=== PATIENT | male | born 1980 | race Two or more races ===

== ENCOUNTER 2016-12-29 21:50 | Emergency (ER) | payer SELFPAY ==
[~2016-12-29] VITALS: Ht 170.2 cm; Wt 9.1 kg
[2016-12-29 22:56] VITALS: BP 135/86
[2016-12-29] MEDS ORDERED: LORAZEPAM 1 MG TABLET. PO ONE (23:00)
[2016-12-29] MEDS ORDERED: ACET325T9 PO (23:07)
[2016-12-29] MEDS ORDERED: AZIT250T6 PO (23:07)
--- NOTE | 2016-12-29 23:07 | PHYS DOC ---
Past Medical History Past Medical History: High Cholesterol Past Surgical History: No Surgical History Alcohol Use: None Drug Use: None Adult General Chief Complaint Chief Complaint: CHEST PAIN HPI HPI 36-year-old male presenting to the emergency department today with substernal chest pain nausea bilateral numbness in the arms and feeling generally anxious. He describes his chest pain is mild intermittent sharp. He also reports having a cold over the past few days. His chest pain today started approximately 30 minutes prior to arrival however he does endorse having chest pain yesterday and the day before as well. Been taking [id number] cold medications which is helped mildly. Review of systems was negative for abdominal pain fevers chills. Negative for meningismus or confusion or neck stiffness. All other review of systems is negative unless otherwise noted in history of present illness. Review of Systems Review of Systems SEE ABOVE. Current Medications Current Medications Current Medications Medications (Trade) Dose Ordered Sig/Orin Start Time Stop Time Status Last Admin Dose Admin Albuterol/ Ipratropium (Duoneb) 3 ml RTQID 12/30/16 08:00 12/30/16 08:00 DC Lorazepam (Ativan) 1 mg 1X ONCE 12/29/16 23:00 12/29/16 23:01 DC 12/29/16 22:59 1 MG Morphine Sulfate 2 mg PRN Q2HR PRN 12/29/16 23:15 12/29/16 23:15 DC Ondansetron HCl (Zofran) 4 mg PRN Q8HRS PRN 12/29/16 23:15 12/29/16 23:15 DC Allergies Allergies Allergies Coded Allergies Type Severity Reaction Last Updated Verified No Known Drug Allergies 12/29/16 No Physical Exam Physical Exam Constitutional: Well developed, well nourished, no acute distress, non-toxic appearance. HENT: Normocephalic, atraumatic, bilateral external ears normal, oropharynx moist, no oral exudates, nose normal. [] Eyes: PERRLA, EOMI, conjunctiva normal, no discharge. Neck: Normal range of motion, no tenderness, supple, no stridor. Cardiovascular:Heart rate regular rhythm, no murmur [] Lungs & Thorax: Bilateral breath sounds clear to auscultation Abdomen: Bowel sounds normal, soft, no tenderness, no masses, no pulsatile masses. Skin: Warm, dry, no erythema, no rash. [] Back: No tenderness, no CVA tenderness. Extremities: No tenderness, no cyanosis, no clubbing, ROM intact, no edema. [] Neurologic: Alert and oriented X 3, normal motor function, normal sensory function, no focal deficits noted. Psychologic: Affect normal, judgement normal, mood normal. [] Current Patient Data Vital Signs Vital Signs Date Time Temp Pulse Resp B/P Pulse Ox O2 Delivery O2 Flow Rate FiO2 12/29/16 22:56 100 16 135/86 100 Room Air 12/29/16 22:33 99.3 99.3 EKG EKG [] EKG shows sinus rhythm with a regular rate. ST segments congruent. [place] is normal. Intervals within normal limits. Radiology/Procedures Radiology/Procedures [] Chest x-ray shows no obvious infiltrate or pneumothorax. Course & Med Decision Making Course & Med Decision Making Pertinent Labs and Imaging studies reviewed. (See chart for details) 36-year-old male presenting the emergency department with cough and chest pain over the past few days. On examination the patient had a low-grade fever. Mild tachycardia. Otherwise unremarkable. Physical exam unremarkable. EKG unremarkable. Chest x-ray didn't show any obvious infiltrate. The patient's pain and improved while in the emergency department. He was subsequent discharged home with an antibiotic to follow up with his primary care physician over the past few days. Dragon Disclaimer Dragon Disclaimer This electronic medical record was generated, in whole or in part, using a voice recognition dictation system. Departure Departure Impression: Primary Impression: Cough Additional Impression: Chest pain Disposition: 01 HOME, SELF-CARE Condition: STABLE Referrals: NO PCP (PCP) ANIKA VELASQUEZ MD Patient Instructions: Cough, Adult Additional Instructions: Thank you for allowing us to participate in your care today. Followup with your primary care physician in 3 days if your symptoms do not improve. If you do not have a primary care provider you can ask for a list of our primary care providers. Return to the emergency department you have any new or concerning findings. This should be evaluated by the primary care physician and any necessary consulting services for continued management within a few days after discharge. Return to emergency room if you have any new or concerning symptoms including but not limited to fever, chills, nausea, vomiting, intractable pain, any new rashes, chest pain, shortness of air, uncontrolled bleeding, difficulty breathing, and/or vision loss. Scripts Azithromycin (Azithromycin Tablet)250 Mg [id number] Mg PO DAILY ANTI-BIOTIC #6 TAB Take 2 tablets today and then take one tablet daily to finish your prescription. Prov:GRABIEL LOVETT MD 12/29/16 Acetaminophen (Tylenol)325 Mg [id number] Mg PO PRN Q8HRS PRN PAIN #20 Prov:GRABIEL LOVETT MD 12/29/16 Problem Qualifiers GRABIEL LOVETT MD Dec 29, 2016 23:08
[2016-12-29] MEDS ORDERED: MORPHINE SULFATE 2 MG/ML DISP.SYRIN. IV PRN (23:15)
[2016-12-29] MEDS ORDERED: ONDANSETRON PF 4 MG/2 ML VIAL. IV PRN (23:15)
--- NOTE | 2016-12-30 06:35 | EKG ---
[facility] [address] [place] [address] Test Date: 2016-12-29 Test Time: 22:00:26 Pat Name: MYNOR GARDUNO Department: Room: Gender: M [employer]: : 1980 Requested By: GRABIEL LOVETT Order Number: [id number] Reading MD: Mahogany Quiles Measurements Intervals [place] Rate: 94 P: 63 IA: 148 QRS: 38 QRSD: 106 T: 23 QT: 352 QTc: 446 Interpretive Statements SINUS RHYTHM NORMAL ECG RI6.01 No previous ECG available for comparison Electronically Signed On 01-01-2017 18:26:17 SCREEN [employer] by Mahogany Quiles
--- NOTE | 2016-12-30 07:24 | RAD ---
2 view CXR: Clinical indications: Left-sided chest pain today. Findings: No acute lung infiltrate or pleural effusion or pulmonary edema or lung mass or pneumothorax is seen. The heart size, pulmonary vasculature, mediastinum and both felicita are unremarkable. The osseous structures appear intact. Impression: No acute radiographic abnormality is seen.
[2016-12-30] MEDS ORDERED: IPRATRPIUM/ALBUTEROL 0.5/2.5MG 3 ML NEBU. NEB SCH (08:00)
== END 2016-12-29 23:17 | disposition home or self-care (01) ==
LOC: ER 21:50
DX: R05 Cough (principal); R07.2 Precordial pain; R00.0 Tachycardia, unspecified; E78.00 Pure hypercholesterolemia, unspecified
CPT/HCPCS: 71020; 93005; 99284-25